=== PATIENT | male | born 1990 | race Caucasian/White ===

== ENCOUNTER 2018-02-06 19:33 | Emergency (ER) | END 2018-02-06 23:01 | disposition home or self-care (01) ==

== ENCOUNTER 2019-01-21 18:04 | Emergency (ER) | payer BC, OTHER ==
[~2019-01-21] VITALS: Ht 182.9 cm; Wt 88.8 kg
[~2019-01-21 18:04] MED LIST: BEN50 PO; NAPR-985 PO; ONDA4TAB14 PO
[2019-01-21 18:15] VITALS: BP 128/76; PULSE 87; RESP 18; Ht 182.9 cm; Wt 88.8 kg
[2019-01-21] MEDS ORDERED: DOCU-144 PO (22:02)
[2019-01-21] MEDS ORDERED: SIME80TA60 PO (22:03)
--- NOTE | 2019-01-21 22:07 | ERD ---
ER Documentation Chief Complaint Chief Complaint constipation x4 days, diarrhea today after home remedies ROS All systems reviewed and are negative except as per history of present illness. Medications Home Meds Active Scripts Simethicone* (Mylicon*) 80 Mg Tab, 80 MG PO Q6H PRN for DISTENSION/GAS/BLOATING, #30 TAB Prov:DONNIE MENDIETA DO 01/21/19 Docusate Sodium* (Colace*) 100 Mg Capsule, 100 MG PO DAILY PRN for CONSTIPATION, #30 CAP Prov:DONNIE MENDIETA DO 01/21/19 Diphenhydramine Hcl* (Benadryl*) 50 Mg Cap, 50 MG PO Q6 PRN for HEADACHE, #30 CAP Prov:ERASTO MA PA-C 02/06/18 Ondansetron (Ondansetron Odt) 4 Mg Tab.rapdis, 4 MG PO Q6H PRN for NAUSEA AND/OR VOMITING, #10 TAB Prov:ERASTO AM PA-C 02/06/18 Naproxen* (Naprosyn*) 500 Mg Tablet, 500 MG PO BID PRN for PAIN AND/OR INFLAMMATION, #30 TAB Prov:ERASTO MA PA-C 02/06/18 Allergies Allergies: Coded Allergies: No Known Allergy (Unverified , 02/06/18) PMhx/Soc History of Surgery: Yes (Michelle [facility]lvarez Wrist Surgery) Anesthesia Reaction: No Hx Neurological Disorder: No Hx Respiratory Disorders: No Hx Cardiac Disorders: No Hx Psychiatric Problems: No Hx Miscellaneous Medical Probl: No Hx Alcohol Use: No Hx Substance Use: No Hx Tobacco Use: Yes (Socially) Physical Exam Vitals Vital Signs Date Temp Pulse Resp B/P (MAP) Pulse Ox O2 O2 Flow FiO2 Time Delivery Rate 01/21/19 98.2 87 18 128/76 97 18:15 (93) Physical Exam Const: No acute distress Head: Atraumatic Eyes: Normal Conjunctiva ENT: Normal External Ears, Nose and Mouth. Neck: Full range of motion. No meningismus. Resp: Clear to auscultation bilaterally Cardio: Regular rate and rhythm, no murmurs Abd: Soft, non tender, non distended. Normal bowel sounds Skin: No petechiae or rashes Back: No midline or flank tenderness Ext: No cyanosis, or edema Neur: Awake and alert Psych: Normal Mood and Affect Departure Diagnosis: Primary Impression: Constipation Constipation type: unspecified constipation type Qualified Codes: K59.00 - Constipation, unspecified Additional Impression: Cholelithiasis Cholelithiasis location: gallbladder Cholecystitis presence: without cholecystitis Biliary obstruction: without biliary obstruction Qualified Codes: K80.20 - Calculus of gallbladder without cholecystitis without obstruction Condition: Fair Patient Instructions: Treating Constipation, Gallstones, Constipation (Adult) Referrals: [facility] YOU HAVE RECEIVED A MEDICAL SCREENING EXAM AND THE RESULTS INDICATE THAT YOU DO NOT HAVE A CONDITION THAT REQUIRES URGENT TREATMENT IN THE EMERGENCY DEPARTMENT. FURTHER EVALUATION AND TREATMENT OF YOUR CONDITION CAN WAIT UNTIL YOU ARE SEEN IN YOUR DOCTORS OFFICE WITHIN THE NEXT 1-2 DAYS. IT IS YOUR RESPONSIBILITY TO MAKE AN APPOINTMENT FOR FOLOW-UP CARE. IF YOU HAVE A PRIMARY DOCTOR --you should call your primary doctor and schedule an appointment IF YOU DO NOT HAVE A PRIMARY DOCTOR YOU CAN CALL OUR PHYSICIAN REFERRAL HOTLINE AT IF YOU CAN NOT AFFORD TO SEE A PHYSICIAN YOU CAN CHOSE FROM THE FOLLOWING [facility] [address] [facility]. [facility] [address] [facility] [facility] [address] [facility] [facility] [address] [facility]. [facility] [address] [facility]. [facility]. [address] Additional Instructions: Call your primary care doctor TOMORROW for an appointment during the next 1-2 days.See the doctor sooner or return here if your condition worsens before your appointment time. DONNIE MENDIETA DO Jan 21, 2019 22:07
== END 2019-01-21 22:06 | disposition home or self-care (01) ==
LOC: FTE 18:04 → E/R 22:06
DX: K59.00 Constipation, unspecified (principal); K80.20 Calculus of gallbladder without cholecystitis without obstruction; Z87.891 Personal history of nicotine dependence
CPT/HCPCS: 76705

== ENCOUNTER 2019-03-25 07:36 | Emergency (ER) | payer BC, OTHER ==
[~2019-03-25] VITALS: Ht 182.9 cm; Wt 88.5 kg
[~2019-03-25 07:36] MED LIST changes: +DOCU-144 PO; +FLUT9.9S NASAL; +IBUP800T48 PO; +SIME80TA60 PO
[2019-03-25 07:39] VITALS: BP 133/75; PULSE 70; RESP 16; Ht 182.9 cm; Wt 88.5 kg
== END 2019-03-25 08:12 | disposition home or self-care (01) ==
LOC: FTE 07:36
DX: R09.81 Nasal congestion (principal); F17.210 Nicotine dependence, cigarettes, uncomplicated
CPT/HCPCS: 99282